=== PATIENT | male | born 1990 | race Caucasian/White ===

== ENCOUNTER → 2021-09-21 | Outpatient (CLI) | payer OTHER | LOC: SLEEP 11:00 | DX: G47.39 Other sleep apnea (principal); G47.33 Obstructive sleep apnea (adult) (pediatric) | CPT/HCPCS: 95810 ==

== ENCOUNTER 2022-01-01 07:49 | Emergency (ER) | payer OTHER ==
[2022-01-01 08:38] LABS: HEMOGLOBIN 15.5 gm/dl (14.0-17.5); RED BLOOD COUNT 5.4 M/UL (4.20-5.50); WHITE BLOOD COUNT 11.4 K/UL (4.5-11.0)
[2022-01-01 09:02] LABS: BUN/CREATININE RATIO 7 (0-10)
[2022-01-01] MEDS ORDERED: ZOFRAN ODT 4 MG4 MG PO (10:30)
== END 2022-01-01 10:47 | disposition home or self-care (01) ==
LOC: ER1 07:49
PROVIDERS: Family Medicine
DX: R10.9 Unspecified abdominal pain (principal); R11.2 Nausea with vomiting, unspecified; R19.7 Diarrhea, unspecified; Z87.442 Personal history of urinary calculi
CPT/HCPCS: 80053; 81001; 85025; 96374; 99284; J2405